=== PATIENT | male | born 1965 | race Native Hawaiian/Other Pacific Islander ===

== ENCOUNTER 2016-10-03 14:32 | Outpatient (CLI) | payer OTHER ==
[2016-10-03 15:03] LABS: PLATELET COUNT 250 K/uL (142-355)
[2016-10-03 15:49] LABS: POTASSIUM 3.5 mmol/L (3.6-5.2); SODIUM 133 mmol/L (136-145)
== END 2016-10-03 20:52 | disposition home or self-care (01) ==
LOC: LABW 14:32
PROVIDERS: Nurse Practitioner
DX: K52.89 Other specified noninfective gastroenteritis and colitis (principal); R05 Cough; R50.9 Fever, unspecified
CPT/HCPCS: 36415; 80053; 82378; 85027; 85651; 86140; 87045; 87205; 87328; 87329; 87493; 87798; 87899

== ENCOUNTER 2017-06-25 10:06 | Outpatient (CLI) | payer OTHER | END 2017-06-25 11:20 | disposition home or self-care (01) | LOC: RESP 10:06 | DX: R06.02 Shortness of breath (principal) | CPT/HCPCS: 94640; 94664 ==

== ENCOUNTER 2019-08-02 08:00 | Outpatient (CLI) | payer OTHER ==
[2019-08-02 09:24] LABS: POTASSIUM 2.1 mmol/L (3.6-5.2)
[2019-08-02 09:52] LABS: PLATELET COUNT 379 K/uL (142-355)
== END 2019-08-02 22:25 | disposition home or self-care (01) ==
LOC: LABW 08:00
PROVIDERS: Internal Medicine
DX: N18.3 Chronic kidney disease, stage 3 (moderate) (principal); Z79.899 Other long term (current) drug therapy
CPT/HCPCS: 36415; 80053; 81000; 82306; 82330; 82436; 82570; 83735; 83970; 84100; 84155; 84300; 84439; 84443; 85027; 85651; 86038

== ENCOUNTER 2019-09-09 10:59 | Outpatient (CLI) | payer OTHER ==
[2019-09-09 11:38] LABS: PLATELET COUNT 429 K/uL (142-355)
== END 2019-09-09 22:40 | disposition home or self-care (01) ==
LOC: LABW 10:59
PROVIDERS: Internal Medicine
DX: N18.3 Chronic kidney disease, stage 3 (moderate) (principal); K91.2 Postsurgical malabsorption, not elsewhere classified
CPT/HCPCS: 36415; 80053; 81000; 82306; 82330; 82570; 82607; 83735; 83970; 84100; 84155; 84425; 85027

== ENCOUNTER 2019-09-12 11:36 | Outpatient (CLI) | payer OTHER ==
[2019-09-12 14:38] LABS: POTASSIUM 3.6 mmol/L (3.6-5.2)
== END 2019-09-12 21:51 | disposition home or self-care (01) ==
LOC: LABW 11:36
PROVIDERS: Internal Medicine
DX: N18.9 Chronic kidney disease, unspecified (principal)
CPT/HCPCS: 36415; 80053; 83735

== ENCOUNTER 2019-10-10 15:26 | Outpatient (CLI) | payer OTHER ==
[2019-10-10 15:59] LABS: PLATELET COUNT 355 K/uL (142-355)
[2019-10-10 16:17] LABS: POTASSIUM 3.4 mmol/L (3.6-5.2)
== END 2019-10-10 19:38 | disposition home or self-care (01) ==
LOC: LABW 15:26
PROVIDERS: Internal Medicine
DX: N18.3 Chronic kidney disease, stage 3 (moderate) (principal)
CPT/HCPCS: 36415; 80053; 81000; 82306; 82330; 82570; 83735; 83970; 84100; 84155; 85027

== ENCOUNTER 2019-11-08 14:47 | Outpatient (CLI) | payer OTHER ==
[2019-11-08 15:52] LABS: POTASSIUM 2.4 mmol/L (3.6-5.2)
== END 2019-11-08 19:10 | disposition home or self-care (01) ==
LOC: LABW 14:47
PROVIDERS: Surgery Surgical Oncology
DX: Z01.818 Encounter for other preprocedural examination (principal)
CPT/HCPCS: 36415; 80048; 93005

== ENCOUNTER 2019-11-14 08:56 | Outpatient (CLI) | payer OTHER ==
[2019-11-14 10:52] LABS: POTASSIUM 2.5 mmol/L (3.6-5.2)
== END 2019-11-14 19:10 | disposition home or self-care (01) ==
LOC: LABW 08:56
PROVIDERS: Nurse Practitioner
DX: R73.9 Hyperglycemia, unspecified (principal); E87.6 Hypokalemia
CPT/HCPCS: 36415; 80053; 83036

== ENCOUNTER → 2020-03-02 | Outpatient (CLI) | payer OTHER ==
[2020-03-02 12:26] LABS: PLATELET COUNT 394 K/uL (142-355); POTASSIUM 4.2 mmol/L (3.6-5.2)
== END ==
LOC: LABW 11:11
PROVIDERS: Internal Medicine
DX: N18.3 Chronic kidney disease, stage 3 (moderate) (principal)
CPT/HCPCS: 36415; 80053; 81000; 82306; 82330; 82570; 83735; 83970; 84100; 84155; 85027

== ENCOUNTER 2020-03-16 09:18 | Outpatient (CLI) | payer OTHER ==
[2020-03-16 09:51] LABS: PLATELET COUNT 298 K/uL (142-355)
[2020-03-16 09:52] LABS: POTASSIUM 4.4 mmol/L (3.6-5.2)
== END 2020-03-16 19:34 | disposition home or self-care (01) ==
LOC: LABW 09:18
PROVIDERS: Internal Medicine
DX: N18.3 Chronic kidney disease, stage 3 (moderate) (principal)
CPT/HCPCS: 36415; 80053; 81000; 82306; 82330; 82570; 83735; 83970; 84100; 84155; 85027

== ENCOUNTER 2020-07-05 10:05 | Outpatient (CLI) | payer OTHER ==
[2020-07-05 10:33] LABS: PLATELET COUNT 399 K/uL (142-355)
[2020-07-05 11:05] LABS: POTASSIUM 3.5 mmol/L (3.6-5.2)
== END 2020-07-05 19:02 | disposition home or self-care (01) ==
LOC: LABW 10:05
PROVIDERS: Internal Medicine
DX: N18.30 Chronic kidney disease, stage 3 unspecified (principal); E87.1 Hypo-osmolality and hyponatremia
CPT/HCPCS: 36415; 80053; 81000; 82330; 82570; 83735; 83935; 84100; 84133; 84155; 84300; 85027

== ENCOUNTER 2020-08-03 07:53 | Outpatient (CLI) | payer OTHER | END 2020-08-03 19:26 | disposition home or self-care (01) | LOC: LAB 07:53 | PROVIDERS: ATTEND Internal Medicine Endocrinology, Diabetes & Metabolism | DX: R19.7 Diarrhea, unspecified (principal) | CPT/HCPCS: 82180; 84425 ==

== ENCOUNTER 2020-11-08 08:11 | Outpatient (CLI) | payer OTHER ==
[2020-11-08 08:34] LABS: PLATELET COUNT 527 K/uL (142-355)
[2020-11-08 08:47] LABS: POTASSIUM 3.4 mmol/L (3.6-5.2)
== END 2020-11-08 20:03 | disposition home or self-care (01) ==
LOC: LABW 08:11
PROVIDERS: ATTEND Internal Medicine
DX: N18.31 Chronic kidney disease, stage 3a (principal); E87.1 Hypo-osmolality and hyponatremia
CPT/HCPCS: 36415; 80053; 81000; 82330; 82570; 83735; 83935; 84100; 84133; 84155; 84300; 85008; 85027

== ENCOUNTER 2020-12-25 13:27 | Outpatient (CLI) | payer OTHER ==
[2020-12-25 14:06] LABS: PLATELET COUNT 558 K/uL (142-355)
[2020-12-25 14:10] LABS: POTASSIUM 3.1 mmol/L (3.6-5.2)
== END 2020-12-25 21:11 | disposition home or self-care (01) ==
LOC: LABW 13:27
PROVIDERS: ATTEND Nurse Practitioner
DX: E86.0 Dehydration (principal); N18.31 Chronic kidney disease, stage 3a; E87.1 Hypo-osmolality and hyponatremia
CPT/HCPCS: 36415; 80053; 81000; 82330; 82570; 83735; 83935; 84100; 84133; 84155; 84300; 85027

== ENCOUNTER 2020-12-25 14:53 | Emergency (ER) | payer OTHER ==
[~2020-12-25] VITALS: Ht 172.7 cm; Wt 87.5 kg
[2020-12-25 15:01] VITALS: TEMP 98.1
[2020-12-25 17:41] VITALS: BP 122/73
== END 2020-12-25 17:41 | disposition home or self-care (01) ==
LOC: ED 14:53
DX: E86.0 Dehydration (principal); E87.1 Hypo-osmolality and hyponatremia; E87.6 Hypokalemia
CPT/HCPCS: 96360; 96361; 99284

== ENCOUNTER 2021-01-22 11:00 | Outpatient (CLI) | payer OTHER ==
[~2021-01-22] VITALS: Ht 172.7 cm; Wt 86.2 kg
[2021-01-22 11:32] LABS: PLATELET COUNT 489 K/uL (142-355)
[2021-01-22 11:38] LABS: POTASSIUM 4.7 mmol/L (3.6-5.2)
[2021-01-22 11:46] VITALS: BP 108/82; TEMP 97.7
== END 2021-01-22 22:00 | disposition home or self-care (01) ==
LOC: LAB 11:00 → LABW 11:00 → INF 11:00
PROVIDERS: Nurse Practitioner; ATTEND Internal Medicine Endocrinology, Diabetes & Metabolism
DX: N18.31 Chronic kidney disease, stage 3a (principal); E87.1 Hypo-osmolality and hyponatremia; E86.0 Dehydration
CPT/HCPCS: 36415; 80053; 81000; 82330; 82728; 83540; 83550; 83735; 83935; 84100; 84300; 85027; 96360; 96361

== ENCOUNTER 2021-01-29 16:04 | Outpatient (CLI) | payer OTHER | END 2021-01-29 22:55 | disposition home or self-care (01) | LOC: INF 16:04 | PROVIDERS: ATTEND Internal Medicine Endocrinology, Diabetes & Metabolism | DX: E86.0 Dehydration (principal) | CPT/HCPCS: 96360; 96361; J7120 ==

== ENCOUNTER 2021-02-07 11:00 | Outpatient (CLI) | payer OTHER ==
[2021-02-07 11:45] LABS: POTASSIUM 5.1 mmol/L (3.6-5.2)
== END 2021-02-07 22:00 | disposition home or self-care (01) ==
LOC: LABW 11:00
PROVIDERS: ATTEND Physician Assistant
DX: M79.661 Pain in right lower leg (principal); R22.41 Localized swelling, mass and lump, right lower limb; E86.0 Dehydration
CPT/HCPCS: 36415; 80048

== ENCOUNTER 2021-02-25 12:22 | Outpatient (CLI) | payer OTHER ==
[2021-02-25 13:10] LABS: PLATELET COUNT 259 K/uL (142-355)
[2021-02-25 13:20] LABS: POTASSIUM 4.3 mmol/L (3.6-5.2)
== END 2021-02-25 20:01 | disposition home or self-care (01) ==
LOC: LAB 12:22
PROVIDERS: ATTEND Surgery
DX: I26.99 Other pulmonary embolism without acute cor pulmonale (principal); Z79.899 Other long term (current) drug therapy
CPT/HCPCS: 80053; 83735; 84100; 84134; 84478; 85027

== ENCOUNTER 2021-02-28 17:05 | Outpatient (CLI) | payer OTHER ==
[2021-03-15 12:01] LABS: PLATELET COUNT 241 K/uL (142-355)
[2021-03-15 12:02] LABS: POTASSIUM 5.3 mmol/L (3.6-5.2)
== END 2021-02-28 19:00 | disposition home or self-care (01) ==
LOC: LAB 17:05
PROVIDERS: ATTEND Surgery
DX: K91.2 Postsurgical malabsorption, not elsewhere classified (principal); K51.818 Other ulcerative colitis with other complication; I26.99 Other pulmonary embolism without acute cor pulmonale; Z93.2 Ileostomy status
CPT/HCPCS: 80053; 83735; 84100; 84478; 85027

== ENCOUNTER 2021-03-11 11:20 | Outpatient (CLI) | payer OTHER ==
[2021-03-19 10:30] LABS: POTASSIUM 4.6 mmol/L (3.6-5.2)
[2021-03-19 10:33] LABS: PLATELET COUNT 416 K/uL (142-355)
== END 2021-03-11 17:00 | disposition home or self-care (01) ==
LOC: LAB 11:20
PROVIDERS: ATTEND Surgery
DX: I26.99 Other pulmonary embolism without acute cor pulmonale (principal)
CPT/HCPCS: 80053; 83735; 84100; 84478; 85027

== ENCOUNTER 2021-03-15 11:33 | Outpatient (CLI) | payer OTHER ==
[2021-03-15 12:06] LABS: POTASSIUM 4.9 mmol/L (3.6-5.2)
[2021-03-15 12:51] LABS: PLATELET COUNT 434 K/uL (142-355)
== END 2021-03-15 23:00 | disposition home or self-care (01) ==
LOC: LAB 11:33
PROVIDERS: ATTEND Surgery
DX: I26.99 Other pulmonary embolism without acute cor pulmonale (principal)
CPT/HCPCS: 80053; 83735; 84100; 84478; 85027

== ENCOUNTER 2021-03-22 11:37 | Outpatient (CLI) | payer OTHER ==
[2021-03-22 13:17] LABS: PLATELET COUNT 465 K/uL (142-355)
== END 2021-03-22 22:02 | disposition home or self-care (01) ==
LOC: LAB 11:37
PROVIDERS: ATTEND Surgery
DX: I26.99 Other pulmonary embolism without acute cor pulmonale (principal)
CPT/HCPCS: 80053; 83735; 84100; 84478; 85007; 85027

== ENCOUNTER 2021-03-29 13:44 | Outpatient (CLI) | payer OTHER ==
[2021-03-29 14:01] LABS: PLATELET COUNT 364 K/uL (142-355)
== END 2021-03-29 22:53 | disposition home or self-care (01) ==
LOC: LAB 13:44
PROVIDERS: ATTEND Surgery
DX: I26.99 Other pulmonary embolism without acute cor pulmonale (principal); K52.89 Other specified noninfective gastroenteritis and colitis
CPT/HCPCS: 80053; 83735; 84100; 84478; 85008; 85027

== ENCOUNTER 2021-04-08 13:23 | Outpatient (CLI) | payer OTHER ==
[2021-04-08 13:56] LABS: PLATELET COUNT 157 K/uL (142-355)
== END 2021-04-08 21:06 | disposition home or self-care (01) ==
LOC: LAB 13:23
PROVIDERS: ATTEND Surgery
DX: I26.99 Other pulmonary embolism without acute cor pulmonale (principal)
CPT/HCPCS: 80053; 83735; 84100; 84478; 85027

== ENCOUNTER 2021-04-15 11:24 | Outpatient (CLI) | payer OTHER ==
[2021-04-15 11:38] LABS: PLATELET COUNT 186 K/uL (142-355)
[2021-04-15 13:30] LABS: POTASSIUM 3.4 mmol/L (3.6-5.2)
== END 2021-04-15 22:42 | disposition home or self-care (01) ==
LOC: LAB 11:24
PROVIDERS: ATTEND Surgery
DX: I26.99 Other pulmonary embolism without acute cor pulmonale (principal)
CPT/HCPCS: 80053; 83735; 84100; 84478; 85027

== ENCOUNTER 2021-04-22 10:36 | Outpatient (CLI) | payer OTHER ==
[2021-04-22 11:02] LABS: PLATELET COUNT 346 K/uL (142-355)
[2021-04-22 11:17] LABS: POTASSIUM 4.8 mmol/L (3.6-5.2)
== END 2021-04-22 21:44 | disposition home or self-care (01) ==
LOC: LAB 10:36
PROVIDERS: ATTEND Surgery
DX: I26.99 Other pulmonary embolism without acute cor pulmonale (principal)
CPT/HCPCS: 80053; 83735; 84100; 84478; 85027

== ENCOUNTER 2021-04-24 07:46 | Outpatient (CLI) | payer OTHER | END 2021-04-24 18:53 | disposition home or self-care (01) | LOC: INF 07:46 | PROVIDERS: ATTEND Internal Medicine | PROC: 30233N1 Transfusion of Nonautologous Red Blood Cells into Peripheral Vein, Percutaneous Approach (ICD-10-PCS; principal; 2021-04-24) | DX: D64.9 Anemia, unspecified (principal) | CPT/HCPCS: 36430; 86850; 86900; 86901; 86922; 96374; P9016 ==

== ENCOUNTER 2021-04-29 11:19 | Outpatient (CLI) | payer OTHER ==
[2021-04-29 11:54] LABS: POTASSIUM 4.5 mmol/L (3.6-5.2)
[2021-04-29 13:42] LABS: PLATELET COUNT 386 K/uL (142-355)
== END 2021-04-29 19:11 | disposition home or self-care (01) ==
LOC: LAB 11:19
PROVIDERS: ATTEND Surgery
DX: I26.99 Other pulmonary embolism without acute cor pulmonale (principal)
CPT/HCPCS: 80053; 83735; 84100; 84478; 85027

== ENCOUNTER 2021-05-01 08:18 | Outpatient (CLI) | payer OTHER | END 2021-05-01 21:07 | disposition home or self-care (01) | LOC: INF 08:18 | PROVIDERS: ATTEND Internal Medicine | DX: D64.9 Anemia, unspecified (principal) | CPT/HCPCS: 85014; 85018 ==

== ENCOUNTER 2021-05-06 11:33 | Outpatient (CLI) | payer OTHER ==
[2021-05-06 11:53] LABS: PLATELET COUNT 342 K/uL (142-355)
[2021-05-06 12:02] LABS: POTASSIUM 4.3 mmol/L (3.6-5.2)
== END 2021-05-06 21:49 | disposition home or self-care (01) ==
LOC: LAB 11:33
PROVIDERS: ATTEND Surgery
DX: I82.401 Acute embolism and thrombosis of unspecified deep veins of right lower extremity (principal); K51.90 Ulcerative colitis, unspecified, without complications; Z93.2 Ileostomy status; K81.2 Acute cholecystitis with chronic cholecystitis; I26.99 Other pulmonary embolism without acute cor pulmonale
CPT/HCPCS: 80053; 83735; 84100; 84478; 85027

== ENCOUNTER 2021-05-13 10:53 | Outpatient (CLI) | payer OTHER ==
[2021-05-13 11:20] LABS: PLATELET COUNT 287 K/uL (142-355)
[2021-05-13 11:31] LABS: POTASSIUM 4.5 mmol/L (3.6-5.2)
== END 2021-05-13 21:15 | disposition home or self-care (01) ==
LOC: LAB 10:53
PROVIDERS: ATTEND Surgery
DX: I26.99 Other pulmonary embolism without acute cor pulmonale (principal)
CPT/HCPCS: 80053; 83735; 84100; 84478; 85027

== ENCOUNTER 2021-05-27 10:59 | Outpatient (CLI) | payer OTHER ==
[2021-05-27 11:08] LABS: PLATELET COUNT 288 K/uL (142-355)
[2021-05-27 11:27] LABS: POTASSIUM 4.1 mmol/L (3.6-5.2)
== END 2021-05-27 22:18 | disposition home or self-care (01) ==
LOC: LAB 10:59
PROVIDERS: ATTEND Surgery
DX: K91.2 Postsurgical malabsorption, not elsewhere classified (principal); I26.99 Other pulmonary embolism without acute cor pulmonale
CPT/HCPCS: 80053; 83735; 84100; 84478; 85027

== ENCOUNTER 2021-06-28 13:47 | Outpatient (CLI) | payer OTHER ==
[2021-06-28 14:19] LABS: PLATELET COUNT 450 K/uL (142-355)
[2021-06-28 14:39] LABS: POTASSIUM 3.8 mmol/L (3.6-5.2)
== END 2021-06-28 19:57 | disposition home or self-care (01) ==
LOC: LAB 13:47
PROVIDERS: ATTEND Internal Medicine Infectious Disease
DX: I26.99 Other pulmonary embolism without acute cor pulmonale (principal); K56.699 Other intestinal obstruction unspecified as to partial versus complete obstruction; I82.401 Acute embolism and thrombosis of unspecified deep veins of right lower extremity; K51.90 Ulcerative colitis, unspecified, without complications; Z93.2 Ileostomy status; K91.2 Postsurgical malabsorption, not elsewhere classified; R78.81 Bacteremia
CPT/HCPCS: 80053; 82550; 85027; 85652; 86140

== ENCOUNTER 2021-07-01 11:32 | Outpatient (CLI) | payer OTHER ==
[2021-07-01 12:17] LABS: POTASSIUM 4.1 mmol/L (3.6-5.2)
[2021-07-01 12:19] LABS: PLATELET COUNT 348 K/uL (142-355)
== END 2021-07-01 20:06 | disposition home or self-care (01) ==
LOC: LAB 11:32
PROVIDERS: ATTEND Surgery
DX: I26.99 Other pulmonary embolism without acute cor pulmonale (principal); K56.699 Other intestinal obstruction unspecified as to partial versus complete obstruction; I82.401 Acute embolism and thrombosis of unspecified deep veins of right lower extremity; K51.80 Other ulcerative colitis without complications; K91.2 Postsurgical malabsorption, not elsewhere classified
CPT/HCPCS: 80053; 83735; 84100; 84478; 85027

== ENCOUNTER 2021-07-08 12:37 | Outpatient (CLI) | payer OTHER ==
[2021-07-08 12:57] LABS: PLATELET COUNT 228 K/uL (142-355)
[2021-07-08 13:21] LABS: POTASSIUM 3.4 mmol/L (3.6-5.2)
== END 2021-07-08 19:11 | disposition home or self-care (01) ==
LOC: LAB 12:37
PROVIDERS: ATTEND Surgery
DX: I26.99 Other pulmonary embolism without acute cor pulmonale (principal); K56.699 Other intestinal obstruction unspecified as to partial versus complete obstruction; I82.401 Acute embolism and thrombosis of unspecified deep veins of right lower extremity; K51.90 Ulcerative colitis, unspecified, without complications; Z93.2 Ileostomy status; Z79.899 Other long term (current) drug therapy
CPT/HCPCS: 80053; 83735; 84100; 84478; 85027

== ENCOUNTER 2021-07-15 10:45 | Outpatient (CLI) | payer OTHER ==
[2021-07-15 11:12] LABS: POTASSIUM 3.1 mmol/L (3.6-5.2)
[2021-07-15 13:22] LABS: PLATELET COUNT 235 K/uL (142-355)
== END 2021-07-15 19:24 | disposition home or self-care (01) ==
LOC: LAB 10:45
PROVIDERS: ATTEND Surgery
DX: K91.2 Postsurgical malabsorption, not elsewhere classified (principal); Z45.2 Encounter for adjustment and management of vascular access device; I26.99 Other pulmonary embolism without acute cor pulmonale
CPT/HCPCS: 80053; 83735; 84100; 84478; 85027

== ENCOUNTER 2021-07-22 10:09 | Outpatient (CLI) | payer OTHER ==
[2021-07-22 10:48] LABS: PLATELET COUNT 314 K/uL (142-355); POTASSIUM 3.6 mmol/L (3.6-5.2)
== END 2021-07-22 20:22 | disposition home or self-care (01) ==
LOC: LAB 10:09
PROVIDERS: ATTEND Physician Assistant
DX: K91.2 Postsurgical malabsorption, not elsewhere classified (principal)
CPT/HCPCS: 80053; 85027

== ENCOUNTER 2021-07-29 11:32 | Outpatient (CLI) | payer OTHER ==
[2021-07-29 12:42] LABS: PLATELET COUNT 309 K/uL (142-355)
[2021-07-29 13:01] LABS: POTASSIUM 3.6 mmol/L (3.6-5.2)
== END 2021-07-29 21:49 | disposition home or self-care (01) ==
LOC: LAB 11:32
PROVIDERS: ATTEND Physician Assistant
DX: K91.2 Postsurgical malabsorption, not elsewhere classified (principal); I82.401 Acute embolism and thrombosis of unspecified deep veins of right lower extremity
CPT/HCPCS: 80053; 85027

== ENCOUNTER 2021-08-05 10:26 | Outpatient (CLI) | payer OTHER ==
[2021-08-05 10:45] LABS: PLATELET COUNT 234 K/uL (142-355)
[2021-08-05 10:58] LABS: POTASSIUM 3.2 mmol/L (3.6-5.2)
== END 2021-08-05 19:41 | disposition home or self-care (01) ==
LOC: LAB 10:26
PROVIDERS: ATTEND Physician Assistant
DX: K91.2 Postsurgical malabsorption, not elsewhere classified (principal); Z93.2 Ileostomy status
CPT/HCPCS: 80053; 85027

== ENCOUNTER 2021-08-12 10:33 | Outpatient (CLI) | payer OTHER ==
[2021-08-12 10:40] LABS: PLATELET COUNT 256 K/uL (142-355)
[2021-08-12 10:55] LABS: POTASSIUM 3.4 mmol/L (3.6-5.2)
== END 2021-08-12 21:01 | disposition home or self-care (01) ==
LOC: LAB 10:33
PROVIDERS: ATTEND Physician Assistant
DX: K91.2 Postsurgical malabsorption, not elsewhere classified (principal)
CPT/HCPCS: 80053; 85027

== ENCOUNTER 2021-08-14 11:30 | Outpatient (CLI) | payer OTHER ==
[2021-08-14 13:02] LABS: POTASSIUM 3.7 mmol/L (3.6-5.2)
== END 2021-08-14 20:25 | disposition home or self-care (01) ==
LOC: LAB 11:30
PROVIDERS: ATTEND Physician Assistant
DX: E83.51 Hypocalcemia (principal)
CPT/HCPCS: 80053

== ENCOUNTER 2021-08-19 10:55 | Outpatient (CLI) | payer OTHER ==
[2021-08-19 11:13] LABS: PLATELET COUNT 337 K/uL (142-355)
[2021-08-19 11:33] LABS: POTASSIUM 3.5 mmol/L (3.6-5.2)
== END 2021-08-19 19:20 | disposition home or self-care (01) ==
LOC: LAB 10:55
PROVIDERS: ATTEND Physician Assistant
DX: K91.2 Postsurgical malabsorption, not elsewhere classified (principal)
CPT/HCPCS: 80053; 85027

== ENCOUNTER 2021-08-28 12:02 | Outpatient (CLI) | payer OTHER ==
[2021-08-28 12:42] LABS: POTASSIUM 3.6 mmol/L (3.6-5.2)
[2021-08-28 13:45] LABS: PLATELET COUNT 268 K/uL (142-355)
== END 2021-08-28 20:21 | disposition home or self-care (01) ==
LOC: LAB 12:02
PROVIDERS: ATTEND Physician Assistant
DX: K91.2 Postsurgical malabsorption, not elsewhere classified (principal)
CPT/HCPCS: 80053; 85027

== ENCOUNTER 2021-09-02 10:32 | Outpatient (CLI) | payer OTHER ==
[2021-09-02 11:53] LABS: PLATELET COUNT 258 K/uL (142-355); POTASSIUM 3.3 mmol/L (3.6-5.2)
== END 2021-09-02 19:01 | disposition home or self-care (01) ==
LOC: LAB 10:32
PROVIDERS: ATTEND Physician Assistant
DX: K91.2 Postsurgical malabsorption, not elsewhere classified (principal)
CPT/HCPCS: 80053; 85027

== ENCOUNTER 2021-09-11 10:16 | Outpatient (CLI) | payer OTHER ==
[2021-09-11 10:37] LABS: PLATELET COUNT 252 K/uL (142-355)
[2021-09-11 10:49] LABS: POTASSIUM 3.8 mmol/L (3.6-5.2)
== END 2021-09-11 21:23 | disposition home or self-care (01) ==
LOC: LAB 10:16
PROVIDERS: ATTEND Physician Assistant
DX: E87.1 Hypo-osmolality and hyponatremia (principal)
CPT/HCPCS: 80053; 85027

== ENCOUNTER 2021-09-19 11:29 | Outpatient (CLI) | payer OTHER ==
[2021-09-19 12:14] LABS: PLATELET COUNT 274 K/uL (142-355)
[2021-09-19 13:55] LABS: POTASSIUM 3.1 mmol/L (3.6-5.2)
== END 2021-09-19 19:14 | disposition home or self-care (01) ==
LOC: LAB 11:29
PROVIDERS: ATTEND Physician Assistant
DX: K91.2 Postsurgical malabsorption, not elsewhere classified (principal)
CPT/HCPCS: 80053; 85027

== ENCOUNTER 2021-09-24 11:26 | Outpatient (CLI) | payer OTHER ==
[2021-09-24 11:53] LABS: PLATELET COUNT 267 K/uL (142-355)
[2021-09-24 12:27] LABS: POTASSIUM 3.3 mmol/L (3.6-5.2)
== END 2021-09-24 19:13 | disposition home or self-care (01) ==
LOC: LAB 11:26
PROVIDERS: ATTEND Physician Assistant
DX: K56.699 Other intestinal obstruction unspecified as to partial versus complete obstruction (principal); I82.401 Acute embolism and thrombosis of unspecified deep veins of right lower extremity; K51.90 Ulcerative colitis, unspecified, without complications
CPT/HCPCS: 80053; 85027

== ENCOUNTER 2021-10-03 10:49 | Outpatient (CLI) | payer OTHER ==
[2021-10-03 11:17] LABS: PLATELET COUNT 247 K/uL (142-355)
[2021-10-03 11:27] LABS: POTASSIUM 3.5 mmol/L (3.6-5.2)
== END 2021-10-03 19:09 | disposition home or self-care (01) ==
LOC: LAB 10:49
PROVIDERS: ATTEND Internal Medicine
DX: N18.31 Chronic kidney disease, stage 3a (principal); K56.699 Other intestinal obstruction unspecified as to partial versus complete obstruction; K51.80 Other ulcerative colitis without complications
CPT/HCPCS: 80053; 81000; 82043; 82306; 82330; 82570; 82652; 83735; 83970; 84100; 84155; 85027

== ENCOUNTER 2021-10-09 10:09 | Outpatient (CLI) | payer OTHER ==
[2021-10-09 10:28] LABS: PLATELET COUNT 287 K/uL (142-355)
[2021-10-09 10:34] LABS: POTASSIUM 3.3 mmol/L (3.6-5.2)
== END 2021-10-09 18:47 | disposition home or self-care (01) ==
LOC: LAB 10:09
PROVIDERS: ATTEND Physician Assistant
DX: K91.2 Postsurgical malabsorption, not elsewhere classified (principal)
CPT/HCPCS: 80053; 85027

== ENCOUNTER 2021-10-21 11:08 | Outpatient (CLI) | payer OTHER ==
[2021-10-21 12:23] LABS: POTASSIUM 3.3 mmol/L (3.6-5.2)
[2021-10-21 12:40] LABS: PLATELET COUNT 270 K/uL (142-355)
== END 2021-10-21 18:59 | disposition home or self-care (01) ==
LOC: LAB 11:08
PROVIDERS: ATTEND Physician Assistant
DX: I82.401 Acute embolism and thrombosis of unspecified deep veins of right lower extremity (principal); K51.90 Ulcerative colitis, unspecified, without complications
CPT/HCPCS: 80053; 85027

== ENCOUNTER 2021-11-04 12:23 | Outpatient (CLI) | payer OTHER ==
[2021-11-04 12:46] LABS: PLATELET COUNT 328 K/uL (142-355)
[2021-11-04 13:01] LABS: POTASSIUM 4.1 mmol/L (3.6-5.2)
== END 2021-11-04 18:55 | disposition home or self-care (01) ==
LOC: LAB 12:23
PROVIDERS: ATTEND Physician Assistant
DX: K91.2 Postsurgical malabsorption, not elsewhere classified (principal)
CPT/HCPCS: 80053; 85027

== ENCOUNTER 2021-11-11 10:44 | Outpatient (CLI) | payer OTHER ==
[2021-11-11 10:57] LABS: PLATELET COUNT 313 K/uL (142-355)
[2021-11-11 11:24] LABS: POTASSIUM 3.9 mmol/L (3.6-5.2)
== END 2021-11-11 18:51 | disposition home or self-care (01) ==
LOC: LAB 10:44
PROVIDERS: ATTEND Physician Assistant
DX: K91.2 Postsurgical malabsorption, not elsewhere classified (principal)
CPT/HCPCS: 80053; 85027

== ENCOUNTER 2021-11-18 10:54 | Outpatient (CLI) | payer OTHER ==
[2021-11-18 11:19] LABS: POTASSIUM 3.3 mmol/L (3.6-5.2)
[2021-11-18 11:25] LABS: PLATELET COUNT 279 K/uL (142-355)
== END 2021-11-18 19:35 | disposition home or self-care (01) ==
LOC: LAB 10:54
PROVIDERS: ATTEND Physician Assistant
DX: K91.2 Postsurgical malabsorption, not elsewhere classified (principal)
CPT/HCPCS: 80053; 85027

== ENCOUNTER 2022-01-09 09:03 | Outpatient (CLI) | payer OTHER ==
[2022-01-09 09:51] LABS: PLATELET COUNT 347 K/uL (142-355)
[2022-01-09 14:29] LABS: POTASSIUM 3.5 mmol/L (3.6-5.2)
== END 2022-01-09 21:57 | disposition home or self-care (01) ==
LOC: LABW 09:03
PROVIDERS: ATTEND Internal Medicine
DX: N18.31 Chronic kidney disease, stage 3a (principal); D50.8 Other iron deficiency anemias
CPT/HCPCS: 36415; 80053; 81000; 82043; 82306; 82330; 82570; 82607; 82652; 82728; 82746; 83540; 83550; 83735; 83970; 84100; 84156; 85027

== ENCOUNTER 2022-03-18 13:20 | Outpatient (CLI) | payer OTHER ==
[2022-03-18 13:34] LABS: PLATELET COUNT 518 K/uL (142-355)
[2022-03-18 14:25] LABS: POTASSIUM 4.1 mmol/L (3.6-5.2)
== END 2022-03-18 18:55 | disposition home or self-care (01) ==
LOC: LAB 13:20
PROVIDERS: ATTEND Internal Medicine
DX: N18.31 Chronic kidney disease, stage 3a (principal); D50.8 Other iron deficiency anemias
CPT/HCPCS: 80053; 81002; 82043; 82306; 82330; 82570; 82607; 82728; 82746; 83540; 83550; 83735; 83970; 84100; 84156; 85027

== ENCOUNTER 2022-03-25 10:41 | Outpatient (CLI) | payer OTHER ==
[2022-03-25 11:17] LABS: PLATELET COUNT 463 K/uL (142-355)
== END 2022-03-25 18:52 | disposition home or self-care (01) ==
LOC: LAB 10:41
PROVIDERS: ATTEND Physician Assistant
DX: K51.90 Ulcerative colitis, unspecified, without complications (principal); Z48.815 Encounter for surgical aftercare following surgery on the digestive system; N18.30 Chronic kidney disease, stage 3 unspecified; I10 Essential (primary) hypertension
CPT/HCPCS: 80053; 85027

== ENCOUNTER 2022-04-01 11:27 | Outpatient (CLI) | payer OTHER ==
[2022-04-01 11:45] LABS: PLATELET COUNT 277 K/uL (142-355)
[2022-04-01 11:53] LABS: POTASSIUM 3.7 mmol/L (3.6-5.2)
== END 2022-04-01 18:56 | disposition home or self-care (01) ==
LOC: LAB 11:27
PROVIDERS: ATTEND Physician Assistant
DX: Z48.815 Encounter for surgical aftercare following surgery on the digestive system (principal); K51.90 Ulcerative colitis, unspecified, without complications; I10 Essential (primary) hypertension
CPT/HCPCS: 80053; 85027

== ENCOUNTER 2022-04-08 12:25 | Outpatient (CLI) | payer OTHER ==
[2022-04-08 13:09] LABS: PLATELET COUNT 229 K/uL (142-355)
== END 2022-04-08 19:12 | disposition home or self-care (01) ==
LOC: LAB 12:25
PROVIDERS: ATTEND Physician Assistant
DX: Z48.815 Encounter for surgical aftercare following surgery on the digestive system (principal); Z43.2 Encounter for attention to ileostomy; K51.90 Ulcerative colitis, unspecified, without complications; N18.30 Chronic kidney disease, stage 3 unspecified; J45.909 Unspecified asthma, uncomplicated; I12.9 Hypertensive chronic kidney disease with stage 1 through stage 4 chronic kidney disease, or unspecified chronic kidney disease
CPT/HCPCS: 80053; 85027

== ENCOUNTER 2022-04-15 11:08 | Outpatient (CLI) | payer OTHER ==
[2022-04-15 11:44] LABS: POTASSIUM 3.4 mmol/L (3.6-5.2)
[2022-04-15 11:45] LABS: PLATELET COUNT 221 K/uL (142-355)
== END 2022-04-15 19:05 | disposition home or self-care (01) ==
LOC: LAB 11:08
PROVIDERS: ATTEND Physician Assistant
DX: Z48.815 Encounter for surgical aftercare following surgery on the digestive system (principal); Z43.2 Encounter for attention to ileostomy; K51.90 Ulcerative colitis, unspecified, without complications; N18.30 Chronic kidney disease, stage 3 unspecified; J45.909 Unspecified asthma, uncomplicated; I12.9 Hypertensive chronic kidney disease with stage 1 through stage 4 chronic kidney disease, or unspecified chronic kidney disease
CPT/HCPCS: 80053; 85027

== ENCOUNTER 2022-04-22 12:15 | Outpatient (CLI) | payer OTHER ==
[2022-04-22 12:30] LABS: PLATELET COUNT 240 K/uL (142-355)
[2022-04-22 12:39] LABS: POTASSIUM 3.2 mmol/L (3.6-5.2)
== END 2022-04-22 20:14 | disposition home or self-care (01) ==
LOC: LAB 12:15
PROVIDERS: ATTEND Physician Assistant
DX: I12.9 Hypertensive chronic kidney disease with stage 1 through stage 4 chronic kidney disease, or unspecified chronic kidney disease (principal); N18.30 Chronic kidney disease, stage 3 unspecified; Z48.815 Encounter for surgical aftercare following surgery on the digestive system; Z43.2 Encounter for attention to ileostomy; K51.90 Ulcerative colitis, unspecified, without complications; J45.909 Unspecified asthma, uncomplicated
CPT/HCPCS: 80053; 85027

== ENCOUNTER 2022-04-29 10:22 | Outpatient (CLI) | payer OTHER ==
[2022-04-29 10:38] LABS: PLATELET COUNT 239 K/uL (142-355)
[2022-04-29 11:03] LABS: POTASSIUM 3.4 mmol/L (3.6-5.2)
== END 2022-04-29 21:35 | disposition home or self-care (01) ==
LOC: LAB 10:22
PROVIDERS: ATTEND Physician Assistant
DX: Z48.815 Encounter for surgical aftercare following surgery on the digestive system (principal); Z43.2 Encounter for attention to ileostomy; K51.80 Other ulcerative colitis without complications
CPT/HCPCS: 80053; 85027

== ENCOUNTER 2022-05-06 10:24 | Outpatient (CLI) | payer OTHER ==
[2022-05-06 10:48] LABS: PLATELET COUNT 236 K/uL (142-355)
[2022-05-06 10:59] LABS: POTASSIUM 3.4 mmol/L (3.6-5.2)
== END 2022-05-06 18:59 | disposition home or self-care (01) ==
LOC: LAB 10:24
PROVIDERS: ATTEND Physician Assistant
DX: Z48.815 Encounter for surgical aftercare following surgery on the digestive system (principal); Z43.2 Encounter for attention to ileostomy; K51.90 Ulcerative colitis, unspecified, without complications; N18.30 Chronic kidney disease, stage 3 unspecified; J45.909 Unspecified asthma, uncomplicated; I12.9 Hypertensive chronic kidney disease with stage 1 through stage 4 chronic kidney disease, or unspecified chronic kidney disease
CPT/HCPCS: 80053; 85027

== ENCOUNTER 2022-08-04 09:05 | Outpatient (CLI) | payer OTHER ==
[2022-08-04 10:05] LABS: PLATELET COUNT 216 K/uL (142-355)
[2022-08-04 10:37] LABS: POTASSIUM 4.3 mmol/L (3.6-5.2)
== END 2022-08-04 20:26 | disposition home or self-care (01) ==
LOC: LABW 09:05
PROVIDERS: ATTEND Internal Medicine
DX: N18.31 Chronic kidney disease, stage 3a (principal); D50.8 Other iron deficiency anemias
CPT/HCPCS: 36415; 80053; 81002; 82043; 82306; 82330; 82570; 82607; 82652; 82728; 82746; 83540; 83550; 83735; 83970; 84100; 84156; 85027

== ENCOUNTER 2022-12-22 11:23 | Outpatient (CLI) | payer OTHER ==
[2022-12-22 11:56] LABS: PLATELET COUNT 203 K/uL (142-355)
[2022-12-22 12:57] LABS: POTASSIUM 4.4 mmol/L (3.6-5.2)
== END 2022-12-22 19:02 | disposition home or self-care (01) ==
LOC: LABW 11:23
PROVIDERS: ATTEND Internal Medicine
DX: D50.8 Other iron deficiency anemias (principal); N18.31 Chronic kidney disease, stage 3a
CPT/HCPCS: 36415; 80053; 81002; 82043; 82306; 82330; 82570; 82607; 82652; 82728; 82746; 83540; 83550; 83735; 83970; 84100; 84156; 85027

== ENCOUNTER 2023-05-25 09:27 | Outpatient (CLI) | payer OTHER ==
[2023-05-25 10:00] LABS: PLATELET COUNT 214 K/uL (142-355)
[2023-05-25 12:53] LABS: POTASSIUM 4.6 mmol/L (3.6-5.2)
== END 2023-05-25 19:05 | disposition home or self-care (01) ==
LOC: LABW 09:27
PROVIDERS: ATTEND Internal Medicine
DX: N18.31 Chronic kidney disease, stage 3a (principal); D50.8 Other iron deficiency anemias; E55.9 Vitamin D deficiency, unspecified
CPT/HCPCS: 36415; 80053; 81002; 82043; 82306; 82330; 82570; 82607; 82652; 82728; 82746; 83540; 83550; 83735; 83970; 84100; 84156; 85027